=== PATIENT | female | born 1940 | race Hispanic/Latino ===

== ENCOUNTER 2021-04-11 06:28 | Day surgery (SDC) | payer MEDICARE ==
[2021-04-11 07:18] LABS: Basophils % (Auto) 0.8 % (0.0-1.8); Eosinophils # (Auto) 0.2 K/mm3 (0.0-0.4); Eosinophils % (Auto) 4.2 % (0.0-4.3); Hematocrit 43.3 % (30.3-42.9); Hemoglobin 14.6 gm/dl (10.1-14.3); Lymphocytes # (Auto) 1.7 K/mm3 (1.2-5.4); Lymphocytes % (Auto) 39.5 % (13.4-35.0); Mean Corpuscular HGB Conc 34 % (30-34); Mean Corpuscular Volume 87 fl (79-97); Monocytes # (Auto) 0.4 K/mm3 (0.0-0.8); Monocytes % (Auto) 8.2 % (0.0-7.3); Platelet Count 188 K/mm3 (140-440); Red Blood Count 4.98 M/mm3 (3.65-5.03); Red Cell Distribution Width 14.1 % (13.2-15.2)
[2021-04-11 07:28] LABS: INR 0.89 (0.87-1.13); Partial Thromboplastin Time 28.1 Sec. (24.2-36.6)
[2021-04-11] MEDS ORDERED: ASPIRIN EC 325 MG TAB PO SCH (07:30)
[2021-04-11] MEDS ORDERED: SODIUM CHLORIDE 0.9% 500 ML 500 ML IV SCH (08:00)
[2021-04-11 08:28] LABS: Calcium 8.8 mg/dL (8.4-10.2)
--- NOTE | 2021-04-11 08:52 | Electrocardiograph Report ---
[facility] Test Date: 2021-04-11 Test Time: 07:14:43 Pat Name: SUSHIL MONROE Department: Room: Gender: F Senior Vice President: RIAZ : 1940 Requested By: VIGNESH OCONNOR Order Number: [id number] Reading MD: Vignesh Oconnor Measurements Intervals [place] Rate: 66 P: 55 TX: 175 QRS: 62 QRSD: 97 T: 38 QT: 449 QTc: 469 Interpretive Statements Sinus rhythm No previous ECG available for comparison Electronically Signed On 04-11-2021 8:51:37 EST by Vignesh Oconnor
[2021-04-11] MEDS: fentaNYL 100 MCG/2 ML INJ ONE ×2 (09:09→09:16)
[2021-04-11] MEDS: LIDOCAINE (2%) 20 MG/1 ML VIAL 20 ML MDV INFILTRATI ONE ×2 (09:09→09:17)
[2021-04-11] MEDS: MIDAZOLAM 2 MG/2 ML INJ ONE ×2 (09:09→09:15)
[2021-04-11] MEDS: HEPARIN 10,000 UNITS/10 ML VIAL ONE ×2 (09:10→09:18)
[2021-04-11] MEDS: VERAPAMIL 5 MG/2 ML INJ ONE ×2 (09:10→09:18)
[2021-04-11] MEDS: HEPARIN/NS 5000 UNIT/500ML 1,000 ML IR ONE ×2 (09:12→09:20)
[2021-04-11] MEDS: NITROGLYCERIN SYRINGE 3 ML ONE ×2 (09:12→09:18)
[2021-04-11] MEDS ORDERED: CLOPIDOGREL 300 MG TAB ONE (09:25)
[2021-04-11] MEDS ORDERED: ALUM-MAG HYDROXIDE-SIMETHICONE 200-200-20MG/5ML ORAL LIQD 30 ML ONE (09:25)
--- NOTE | 2021-04-11 10:20 | Short Stay Summary ---
Short Stay Documentation Date of service: 04/11/21 - History H&P: obtained from office - Allergies and Medications Current Medications: Allergies No Known Allergies Allergy (Verified 04/11/21 07:04) Home Medications Medication Instructions Recorded Confirmed Last Taken Type Aspirin EC [Halfprin EC] 81 mg PO DAILY 04/11/21 04/11/21 04/10/21 History 81 mg Ergocalciferol [Vitamin D2] 1 cap PO QWEEK 04/11/21 04/11/21 04/10/21 History 1 cap ISOSORBIDE MONOnitrate [Imdur ER] 30 mg PO DAILY 04/11/21 04/11/21 04/10/21 History 30 mg Thyroid,Pork [[place] Thyroid] 30 mg PO DAILY 04/11/21 04/11/21 04/10/21 History 30 mg hydroCHLOROthiazide 12.5 mg PO DAILY 04/11/21 04/11/21 04/10/21 History [Hydrochlorothiazide] 12.5mg Active Medications Aspirin (Aspirin Ec 325 Mg Tab) 325 mg PO ONCE@0730 AYAN Stop: 04/11/21 17:00 Last Admin: 04/11/21 07:30 Dose: 325 mg Sodium Chloride (Nacl 0.9% 500 Ml) 500 mls @ 50 mls/hr IV DIRECT AYAN Stop: 04/11/21 17:59 Last Admin: 04/11/21 08:40 Dose: 50 mls/hr - Physical exam Integumentary: other (dressing clena dry and intact. No bleeding or hematoma) - Brief post op/procedure progress note Date of procedure: 04/11/21 Pre-op diagnosis: chest pain/SOB Post-op diagnosis: same Anesthesia: local Estimated blood loss: minimal - Hospital course Hospital course: Patient underwent cardiac cath through right radial. Patient tolerated procedure well. Patient to be discharged home on Plavix and follow-up at [place] for procedure. - Disposition Condition at discharge: Good Disposition: 01 HOME / SELF CARE / HOMELESS - Discharge Diagnoses (1) CAD (coronary artery disease) Status: Acute (2) HTN (hypertension) Status: Acute (3) HLD (hyperlipidemia) Status: Acute Short Stay Discharge Plan Activity: advance as tolerated Diet: low fat, low cholesterol, low salt Wound: keep clean and dry, per your surgeon's advice Follow up with: HORTENCIA,JEMMA [Other] - 7 Days RAFAELA OCONNOR MD [Staff Physician] - 04/23/21 10:45 am (Patient to follow-up appoint with Dr. Oconnor on 04/23/2021 at 10:45 AM at our [place] location. Phone #[phone]) Prescriptions: Clopidogrel [Plavix] 75 mg PO QDAY 30 Days #30 tablet
[2021-04-11 13:16] VITALS: BP 132/65
--- NOTE | 2021-04-18 10:43 | Cardiac Catherization Report ---
DATE OF SERVICE: 04/11/2021 LEFT HEART CATHETERIZATION CLINICAL INFORMATION: This is an 81-year-old male with severe coronary calcification, hyperlipidemia, has been having shortness of breath with exertion despite medical therapy, here for a left heart catheterization. Left heart catheterization performed with moderate sedation started at 9:09, finished at 9:30, 21 minutes of moderate sedation. DESCRIPTION OF PROCEDURE: Procedure was done via the right radial artery, sterile technique and local anesthesia. A 6-Yemeni radial sheath inserted. Left system engaged with JL3.5 catheter. Calcification of the coronary system noted. Left main is large caliber and patent with diffuse calcification of 10%. LAD is a large caliber vessel and patent with diffuse 10% calcification. Diagonal 1 small caliber vessel has proximal 90% lesion, it is 2.25 vessel. Circumflex is large caliber vessel and patent with diffuse calcification of 10%, goes into a calcified OM1 that is 10%. RCA is a large dominant vessel, engaged with JR4 catheter. Proximal is patent, mid 80%. Distal is patent, calcified vessel. PDA and PLV are small to medium caliber vessel and patent. LV gram done in INDONESIAN and MCCURDY view shows normal LV function, EF 55-60%, LVEDP 14 mmHg, LV is 129, aortic is 129/69. No gradient across the aortic valve on pullback. The 5-Yemeni catheters, all taken over a guidewire. A 6-Yemeni radial sheath was discontinued. Radial band applied. No hematoma, no bleeding. SUMMARY: Calcified coronary vessels. Left main diffuse 10%. LAD diffuse 10%. Diagonal 1 small caliber, 90% proximal. Circumflex diffuse 10% calcified. OM1 large caliber and patent, diffuse 10%. RCA large, dominant, proximal patent, calcified, mid calcified 80%, distal patent. Normal left ventricular function. The patient will be loaded with Plavix, will be referred to [place] for rotational atherectomy of the RCA. Discussed this with the patient and the patient's family. TID: [id number] RECEIPT: [id number] KENDRICK/CHRISTI/JAMILA
== END 2021-04-11 13:45 | disposition home or self-care (01) ==
LOC: CATHLABREC 06:28
PROVIDERS: ATTEND Internal Medicine
DX: I25.10 Atherosclerotic heart disease of native coronary artery without angina pectoris (principal); R07.89 Other chest pain; R06.02 Shortness of breath; I10 Essential (primary) hypertension; M19.90 Unspecified osteoarthritis, unspecified site; E03.9 Hypothyroidism, unspecified; I87.2 Venous insufficiency (chronic) (peripheral); E78.2 Mixed hyperlipidemia; Z79.899 Other long term (current) drug therapy; Z79.82 Long term (current) use of aspirin; Z87.891 Personal history of nicotine dependence; Z98.890 Other specified postprocedural states; Z85.828 Personal history of other malignant neoplasm of skin; Z82.49 Family history of ischemic heart disease and other diseases of the circulatory system
CPT/HCPCS: 36415; 80048; 85025; 85610; 85730; 93005; 93010; 93458; 99156; C1894; J1644; J1815; J2250; J3010; J3490; J7040; Q9967